=== PATIENT | female | born 1990 | race Caucasian/White ===

== ENCOUNTER 2021-01-24 11:45 | Emergency (ER) | payer OTHER, SELFPAY ==
[2021-01-24] VITALS (9 sets, daily range): BP systolic 107–136; BP diastolic 65–76; PULSE 72–92; RESP 14–24; TEMP 37.1; O2SAT 98–100; BMI 33.4
--- NOTE | 2021-01-24 11:55 | DI.RAD.S_ITS ---
PROCEDURE: XR CHEST 1V INDICATIONS: chest pain TECHNIQUE: One view of the chest was acquired. COMPARISON: None. FINDINGS: Surgical changes and devices: None. Lungs and pleura: Lungs are clear. No pleural effusions or pneumothorax. Mediastinum: Mediastinal contours appear normal. Heart size is normal. Bones and chest wall: No suspicious bony lesions. Overlying soft tissues appear unremarkable. IMPRESSION: No acute cardiopulmonary disease. Dictated by: Falguni Godfrey M.D. on 01/24/2021 at 11:29 Approved by: Falguni Godfrey M.D. on 01/24/2021 at 11:29
[2021-01-24 12:07] LABS: Add Manual Diff / Slide Review NO; Basophils Absolute Auto 0 /uL (0-100); Basophils Percent Auto 0.5 % (0-2); Eosinophils Absolute Auto 0 /uL (0-450); Eosinophils Percent Auto 0.7 % (2-4); Hematocrit 38.4 % (36-46); Hemoglobin 13.3 g/dL (12.0-16.0); Lymphocytes Absolute Auto 1700 /uL (1100-4500); Lymphocytes Percent Auto 24.1 % (25-40); Mean Corpuscular HGB Conc 34.7 % (30-36); Mean Corpuscular Hemoglobin 30.8 PG (26-34); Mean Corpuscular Volume 88.7 fL (80-100); Monocytes Absolute Auto 400 /uL (0-900); Neutrophils Absolute Auto 5000 /uL (1500-7000); Neutrophils Percent Auto 69.7 % (50-75); Platelet Count 256 X10^3/uL (150-400); Red Blood Cell Count 4.33 X10^6/uL (4.0-5.2); Red Cell Distribution Width 13.2 % (11.6-14.8); White Blood Cell Count 7.1 X10^3/uL (4.5-11.0)
[2021-01-24 12:09] LABS: INR 1.1 (0.9-1.3); Prothrombin Time 13.1 SECONDS (10.1-12.7)
[2021-01-24 12:11] LABS: PTT Partial Thromboplastin Tim 52 SECONDS (26.4-36.2)
[2021-01-24 12:18] LABS: Alanine Aminotransferase 29 IU/L (<35); Albumin Globulin Ratio 1.5 (1.0-2.8); Alkaline Phosphatase 86 U/L (38-126); Aspartate Aminotransferase 34 IU/L (14-36); BUN Creatinine Ratio 28.6 (6-22); Bilirubin Total 0.4 mg/dL (0.2-1.3); Blood Urea Nitrogen 20 mg/dL (7-17); Calcium 9.8 mg/dL (8.4-10.2); Carbon Dioxide 24 mmol/L (22-32); Chloride 105 mmol/L (98-107); Creatine Kinase 184 U/L (30-135); Estimated Glomerular Filt Rate > 60.0 mL/min (>60); Globulin 3.4 g/dL (1.7-4.1); Glucose 96 mg/dL (70-100); HEMOLYSIS < 15 (0-50); Lipase 89 U/L (23-300); Sodium 139 mmol/L (137-145); Total Protein 8.4 g/dL (6.3-8.2)
[2021-01-24 12:29] LABS: Troponin I < 0.012 ng/mL (0.01-0.034)
[2021-01-24 12:33] LABS: CKMB % Relative Index 0.3 % (1.5-5.0); Creatine Kinase MB 0.51 ng/mL (<2.37)
--- NOTE | 2021-01-24 13:27 | ED_ITS ---
HPI - Chest Pain General Chief Complaint: Chest Pain Stated Complaint: Chest Pains Time Seen by Provider: 01/24/21 12:20 Source: patient Mode of arrival: Ambulatory Limitations: no limitations History of Present Illness HPI narrative: Is a 30-year-old female comes with complaint of chest pain that was substernal radiating towards her back and up to her neck. She states it started at 11:15 a.m. this morning. She had done her normal workup, she had been doing some daily activities and cleaning around the house patient states she went to urinate and then developed symptoms which lasted for approximately 1/2 hour, her maximum intensity was 4 to 6/10. Patient states no fevers, no chills. Her T-max was 99.1? home. No cold, cough or congestion she states that she did not feel short of breath. She denies any diaphoresis, no nausea, no vomiting no issues with bowel movements or urination she is not appreciate any swelling in her extremities. Patient states she has had reflux in the it felt similar but not exactly like today. Those episodes have never lasted as long and have typically been preceded by spicy foods or an obvious proceeding ingestion. Patient states they follow her thyroid but she is not on any medications. No other medical issues. No prior surgeries. No allergies to medications. She is not on any oral contraceptives or estrogen supplementation. No tobacco, no alcohol, no illicit. There is a family history of hyperthyroid with her dad who had radiation. Her mom is hypothyroid with hypertension. No other known cardiac, pulmonary embolic history. Patient has not any long distance travel or been sedentary. Related Data Allergies Allergy/AdvReac Type Severity Reaction Status Date / Time No Known Drug Allergies Allergy Verified 01/24/21 11:55 Review of Systems Review of Systems ROS Unobtainable: All systems reviewed & are unremarkable except as noted in HPI and below Patient History Social History Smoking Status: Unknown if ever smoked Smoking Status: Unknown if ever smoked alcohol intake frequency: holidays/special occasions only Substance Use Type: does not use Exam Narrative Exam Narrative: GENERAL: Alert and oriented x three, well-nourished female in mild distress. HEENT: Head normocephalic, atraumatic, EOMI, pupils reactive, face symmetric, moist mucous membranes NECK: Supple, full range of motion CARDIOVASCULAR: Regular rate and rhythm without murmurs, rubs or gallops. Non reproducible chest pain. RESPIRATORY: Breath sounds equal bilaterally, no wheezes rales or rhonchi. No tachypnea accessory muscle use. ABDOMEN: Soft, nontender. Normoactive bowel sounds all 4 quadrants. No guarding or rebound, rigidity, no mass : No CVA tenderness EXTREMITIES: Normal range of motion, no clubbing or edema. Neurovascularly intact. NEUROLOGICAL: Cranial nerves II through XII grossly intact. Moving all extremities SKIN: Warm, dry, no petechiae, no rashes or lesions. Initial Vital Signs Initial Vital Signs: Vital Signs Temperature 98.8 F 01/24/21 11:50 Pulse Rate 89 01/24/21 11:50 Respiratory Rate 14 01/24/21 11:50 Blood Pressure 136/74 01/24/21 11:50 Pulse Oximetry 98 01/24/21 11:50 Scores HEART Score Heart Score history: Slightly Suspicious Heart Score EKG: Normal Heart Score Age: < 45 years old Heart Score risk factors: No known risk factors Heart Score troponin: < or = to normal limit Heart Score Total: 0 PERC Score Age greater than or equal to 50 years: No Heart rate greater than or equal to 100 bpm: No Room Air O2 Sat less than 95%: No Unilateral leg swelling: No Recent trauma or surgery: No Hemoptysis: No Prior PE or DVT: No Hormone Use: No Total PERC Score: 0 Course Orders Ordered: ED Orders 01/24/21 11:53 Complete Blood Count AUTO DIFF Stat Comprehensive Metabolic Panel Stat D Dimer Stat Lipase Stat Partial Thromboplastin Time Stat Prothrombin Time INR Stat Troponin & CK Cardiac Panel Stat 01/24/21 11:55 XR chest 1V Stat EKG-12 Lead Stat 01/24/21 13:55 Troponin I Stat EKG-12 Lead Stat Vital Signs Vital signs: Vital Signs - 8 hr 01/24/21 11:50 01/24/21 11:53 Temperature 98.8 F Pulse Rate 89 92 H Respiratory Rate 14 Blood Pressure 136/74 136/74 Pulse Oximetry 98 98 MDM - Chest Pain Lab Data Attestation: I reviewed the patient's lab results. Result diagrams: 01/24/21 11:53 01/24/21 11:53 Labs: Lab Results 01/24/21 01/24/21 01/24/21 Range/Units 11:53 11:53 11:53 WBC 7.1 (4.5-11.0) X10^3/uL RBC 4.33 (4.0-5.2) X10^6/uL Hgb 13.3 (12.0-16.0) g/dL Hct 38.4 (36-46) % MCV 88.7 (80-100) fL MCH 30.8 (26-34) PG MCHC 34.7 (30-36) % RDW 13.2 (11.6-14.8) % Plt Count 256 (150-400) X10^3/uL Neut % (Auto) 69.7 (50-75) % Lymph % (Auto) 24.1 L (25-40) % [place] % (Auto) 5.0 (3-14) % Eos % (Auto) 0.7 L (2-4) % Baso % (Auto) 0.5 (0-2) % Neut # (Auto) 5000 (8256-0768) /uL Lymph # (Auto) 1700 (9060-6556) /uL [place] # (Auto) 400 (0-900) /uL Eos # (Auto) 0 (0-450) /uL Baso # (Auto) 0 (0-100) /uL PT 13.1 H (10.1-12.7) SECONDS INR 1.1 (0.9-1.3) APTT 52 H (26.4-36.2) SECONDS D-Dimer (<230) ng/mL Sodium 139 (137-145) mmol/L Potassium 4.0 (3.4-5.1) mmol/L Chloride 105 (98-107) mmol/L Carbon Dioxide 24 (22-32) mmol/L BUN 20 H (7-17) mg/dL Creatinine 0.70 (0.52-1.04) mg/dL Estimated GFR > 60.0 (>60) mL/min BUN/Creatinine Ratio 28.6 H (6-22) Glucose 96 (70-100) mg/dL Calcium 9.8 (8.4-10.2) mg/dL Total Bilirubin 0.4 (0.2-1.3) mg/dL AST 34 (14-36) IU/L ALT 29 (<35) IU/L Alkaline Phosphatase 86 (38-126) U/L Total Creatine Kinase 184 H (30-135) U/L CK-MB (CK-2) 0.51 (<2.37) ng/mL CK-MB (CK-2) Rel Index 0.3 L (1.5-5.0) % Troponin I < 0.012 (0.01-0.034) ng/mL Total Protein 8.4 H (6.3-8.2) g/dL Albumin 5.0 (3.5-5.0) g/dL Globulin 3.4 (1.7-4.1) g/dL Albumin/Globulin Ratio 1.5 (1.0-2.8) Lipase 89 (23-300) U/L 01/24/21 01/24/21 Range/Units 11:53 14:10 WBC (4.5-11.0) X10^3/uL RBC (4.0-5.2) X10^6/uL Hgb (12.0-16.0) g/dL Hct (36-46) % MCV (80-100) fL MCH (26-34) PG MCHC (30-36) % RDW (11.6-14.8) % Plt Count (150-400) X10^3/uL Neut % (Auto) (50-75) % Lymph % (Auto) (25-40) % [place] % (Auto) (3-14) % Eos % (Auto) (2-4) % Baso % (Auto) (0-2) % Neut # (Auto) (7106-3855) /uL Lymph # (Auto) (0987-1748) /uL [place] # (Auto) (0-900) /uL Eos # (Auto) (0-450) /uL Baso # (Auto) (0-100) /uL PT (10.1-12.7) SECONDS INR (0.9-1.3) APTT (26.4-36.2) SECONDS D-Dimer < 200 (<230) ng/mL Sodium (137-145) mmol/L Potassium (3.4-5.1) mmol/L Chloride (98-107) mmol/L Carbon Dioxide (22-32) mmol/L BUN (7-17) mg/dL Creatinine (0.52-1.04) mg/dL Estimated GFR (>60) mL/min BUN/Creatinine Ratio (6-22) Glucose (70-100) mg/dL Calcium (8.4-10.2) mg/dL Total Bilirubin (0.2-1.3) mg/dL AST (14-36) IU/L ALT (<35) IU/L Alkaline Phosphatase (38-126) U/L Total Creatine Kinase (30-135) U/L CK-MB (CK-2) (<2.37) ng/mL CK-MB (CK-2) Rel Index (1.5-5.0) % Troponin I < 0.012 (0.01-0.034) ng/mL Total Protein (6.3-8.2) g/dL Albumin (3.5-5.0) g/dL Globulin (1.7-4.1) g/dL Albumin/Globulin Ratio (1.0-2.8) Lipase (23-300) U/L Point of Care Testing Test Results Negative Urine Dip Bedside Urine Glucose Negative Bedside Urine Bilirubin - Negative Bedside Urine Ketone - Negative Urine Specific [place] 1.010 Bedside Urine Occult Blood +/- Bedside Urine pH 6 Bedside Urine Protein - Negative Bedside Urine Urobilinogen - Negative Bedside Urine Nitrite - Negative Bedside Urine Leukocytes - Negative Esterase Imaging Data Chest x-ray: Attestation: I personally reviewed and interpreted this imaging study as follows: Radiologist's Impression: [address] [id number] ReportSigned Patient: Vale Cerna#: [id number]: 1990Acct:[id number]/Sex: 30 / FDate of Service: 01/24/21Loc: EDAccess ion Number: [id number] Procedure: XR chest 1V Ordering Provider: Bhavana Johnson D.O. PROCEDURE: XR CHEST 1V INDICATIONS: chest pain TECHNIQUE: One view of the chest was acquired. COMPARISON: None. FINDINGS: Surgical changes and devices: None. Lungs and pleura: Lungs are clear. No pleural effusions or pneumothorax. Mediastinum: Mediastinal contours appear normal. Heart size is normal. Bones and chest wall: No suspicious bony lesions. Overlying soft tissues appear unremarkable. IMPRESSION: No acute cardiopulmonary disease. Dictated by: Falguni Godfrey M.D. on 01/24/2021 at 11:29 Approved by: Falguni Godfrey M.D. on 01/24/2021 at 11:29 ECG Data Attestation: I personally reviewed and interpreted this ECG as follows: Prior ECG tracings: not available for review Interpretation: Sinus rhythm with sinus arrhythmia. Rate of 70 VA interval 166 QRS 86 and QTC of 417. Q-wave in 2 3 AVF. No elevation appreciated. No depression noted. EKG2. Sinus rhythm with sinus arrhythmia. Q-wave in 2 3 AVF. No acute changes appreciated otherwise. MDM Narrative Medical decision making narrative: This is a 30-year-old female comes emergency department for chest pain radiating to her neck and back. Patient does not have any high risk factors. Patient heart score is 0. Negative ddimer with PERC score. Patient has had a history of reflux and had some similarities but is not exactly the same. Symptoms have resolved her department without any recurrence. Chest x-ray and of her lab work along with EKG did not show any suspicious findings at this point. Repeat troponin in EKGs negative. Plan for DC home with close follow-up and strict return precautions. Discharge Plan Departure Patient Disposition: Home Clinical Impression: Atypical chest pain Instructions: DI for Atypical Chest Pain Activity Restrictions/Additional Instructions: Follow up with your primary care physician. They may wish to do some additional testing. Call for an appointment If you have recurrent symptoms you may try Tums or a Pepcid [id number] to see if this improves your symptoms. Please return to the emergency department if you have recurrent symptoms, lightheadedness or passing out, new chest pain, shortness of breath, persistent vomiting, diaphoresis or sweatiness, new swelling in your extremities their new or concerning symptoms today.
[2021-01-24 14:05] LABS: D Dimer < 200 ng/mL (<230)
[2021-01-24 14:45] LABS: Troponin I < 0.012 ng/mL (0.01-0.034)
== END 2021-01-24 15:12 | disposition home or self-care (01) ==
PROVIDERS: Emergency Provider Emergency Medicine
DX: R07.89 Other chest pain (principal)
CPT/HCPCS: 36415; 71045; 80053; 81003; 81025; 82550; 82553; 83690; 84484; 85025; 85379; 85610; 85730; 93005; 99283; 99284